=== PATIENT | female | born 1985 | race Caucasian/White ===

== ENCOUNTER 2019-07-11 17:41 | Emergency (ER) | payer OTHER, MEDICAID ==
[~2019-07-11 17:41] MED LIST: CLON0.5T PO; LEVO25TA6 PO
== END 2019-07-11 19:37 | disposition left against medical advice (07) ==
LOC: ER 17:41
DX: M79.605 Pain in left leg (principal); Z53.21 Procedure and treatment not carried out due to patient leaving prior to being seen by health care provider